=== PATIENT | male | born 1965 ===

== ENCOUNTER 2020-02-15 20:29 | Emergency (ER) | payer SELFPAY ==
[2020-02-15] MEDS ORDERED: diphenhydrAMINE 50 MG/ML VIAL ONE (20:45)
== END 2020-02-16 02:45 | disposition home or self-care (01) ==
LOC: BURERS 20:29
DX: T78.00XA Anaphylactic reaction due to unspecified food, initial encounter (principal); E11.9 Type 2 diabetes mellitus without complications
CPT/HCPCS: 94760; 96374; J1200